=== PATIENT | male | born 1950 | race Two or more races ===

== ENCOUNTER 2022-05-15 14:09 | Emergency (ER) | payer OTHER ==
[~2022-05-15] VITALS: Ht 172.7 cm; Wt 95.0 kg
[2022-05-15] MEDS ORDERED: SODIUM CHLORIDE 0.9% 1,000 ML IV ONE ×2 (14:30→19:30)
[2022-05-15 14:57] LABS: HEMOGLOBIN. 13.4 g/dL (14.0-18.0); MEAN CORPUSCULAR HEMOGLOBIN 31.7 pg (28.0-32.0); MEAN CORPUSCULAR VOLUME 92.4 fL (80.0-94.0); MEAN PLATELET VOLUME 7.4 fl (7.4-10.4); PLATELET 265 x1000/uL (130-400); RED BLOOD CELL COUNT 4.23 mill/uL (4.7-6.1); RED CELL DISTRIBUTION WIDTH 14.8 % (11.6-14.6)
[2022-05-15 15:04] LABS: CHLORIDE 100 mEq/L (98-107)
[2022-05-15 15:25] LABS: ETHANOL BLOOD < 10 mg/dL
[2022-05-15 17:17] LABS: PLATELET ESTIMATE NORMAL
[2022-05-15] MEDS ORDERED: VANCOMYCIN 1G PREMIX 200 ML IV ONE (18:00)
[2022-05-15] MEDS ORDERED: CEFEPIME 2,000 MG in DEXT 5% WATER 100 ML IV SCH (18:00)
[2022-05-15] MEDS ORDERED: ACETAMINOPHEN 650MG SUPP PR ONE (18:30)
[2022-05-15] MEDS ORDERED: THIAMINE HCL IV NR (19:00)
[2022-05-15] MEDS ORDERED: SODIUM CHLORIDE 0.9% IV NR (19:00)
[2022-05-15] MEDS ORDERED: ACETAMINOPHEN 325MG TABLET PO ONE (19:30)
[2022-05-15] MEDS ORDERED: CHLORDIAZEPOXIDE 25MG CAPSULE PO ONE (19:30)
[2022-05-15] MEDS ORDERED: LORAZEPAM 2MG/ML CPJ IV ONE (19:30)
[2022-05-15] MEDS ORDERED: KETOROLAC 15MG/ML VIAL IV ONE (19:30)
[2022-05-15 19:43] LABS: CLARITY URINE CLOUDY (CLEAR); COLOR URINE ORANGE (YELLOW); KETONES URINE 1+ (NEGATIVE); LEUKOCYTE ESTERASE URINE TRACE (NEGATIVE); NITRITE URINE NEGATIVE (NEGATIVE); OCCULT BLOOD URINE 3+ (NEGATIVE); PH URINE 5.5 (4.5-8.0); PROTEIN URINE 2+ (NEGATIVE); SPECIFIC GRAVITY URINE 1.016 (1.005-1.030)
[2022-05-15 20:00] LABS: *AMPHETAMINES SCREEN URINE NEGATIVE (NEGATIVE); *BARBITURATES SCREEN URINE NEGATIVE (NEGATIVE); *BENZODIAZEPINES SCREEN URINE NEGATIVE (NEGATIVE); *COCAINE SCREEN URINE NEGATIVE (NEGATIVE); CANNABINOID URINE SCREEN NEGATIVE (NEGATIVE); METHADONE URINE SCREEN NEGATIVE (NEGATIVE); OPIATES URINE SCREEN NEGATIVE (NEGATIVE); PHENCYCLIDINE URINE SCREEN NEGATIVE (NEGATIVE)
[2022-05-15 21:30] VITALS: BP 150/84
== END 2022-05-15 23:12 | disposition short-term general hospital (02) ==
LOC: ER 14:48 → EDBD 14:48 → ER 23:12 → CANBEDREQ 05-16 00:07
DX: J18.9 Pneumonia, unspecified organism (principal); R50.9 Fever, unspecified; R51.9 Headache, unspecified; I10 Essential (primary) hypertension; Z20.822 Contact with and (suspected) exposure to COVID-19
CPT/HCPCS: 36415; 70450; 71045; 80053; 80305; 80307; 80320; 80329; 81003; 82140; 83605; 83690; 83880; 84484; 85025; 87040; 87077; 87186; 87426; 93005; 96361; 96365; 96366; 96368; 96375; 99285; C9803; J0692; J1885; J2060; J3370; J3411; J7030; J7050; J7060; G0480